=== PATIENT | male | born 1960 | race Caucasian/White ===

== ENCOUNTER 2021-12-30 13:53 | Observation (INO) ==
[2021-12-30 16:24] LABS: Basophils # 0.1 10*3/uL (0.0-0.2); Eosinophils # 0.3 10*3/uL (0.0-0.87); Eosinophils % 2.6 % (0.00-10.9); Hematocrit 44.7 VOL% (42.0-52.0); Hemoglobin 15.1 GM/DL (14.0-18.0); Immature Granulocytes % 0.4 %; Immature Granulocytes Absolute 0.05 #; Lymphocytes # 3.5 10*3/uL (1.4-4.0); Lymphocytes % 27.5 % (21.2-54.2); Mean Corpuscular HGB Conc 33.8 GM/DL (32-36); Mean Corpuscular Volume 91.6 FL (87-102); Mean Platelet Volume 10.2 FL (9.6-12.0); Monocytes # 1.4 10*3/uL (0.11-0.8); Neutrophils % 57.5 % (38.7-73.9); Platelet Count 228 T/CUMM (130-400); Red Blood Count 4.88 MC/CUMM (3.8-5.5); White Blood Count 12.6 T/CUMM (4-12)
[2021-12-30 16:25] LABS: Arterial Base Excess iSTAT 3 MMOL/L (-2.5-2.5); Arterial Bicarbonate iSTAT 27.9 MMOL/L (20-26); Arterial O2 Saturation iSTAT 98 % (95-100); Arterial PCO2 iSTAT 41 MM HG (35-48); Arterial PO2 iSTAT 94 MM HG (80-95); Arterial Total CO2 iSTAT 29 MMO/L (23-27); Arterial pH iSTAT 7.441 (7.35-7.45)
[2021-12-30 16:36] LABS: Alanine Aminotransferase 27 U/L (16-61); Albumin 4.1 G/DL (3.4-5.0); Alkaline Phosphatase 152 U/L (45-117); Aspartate Amino Transferase 32 U/L (0-37); Bilirubin,Total < 0.39 MG/DL (0.20-1.00); Blood Urea Nitrogen 16 MG/DL (7-18); Calcium 10.2 MG/DL (8.5-10.1); Carbon Dioxide 27 MMOL/L (21-32); Chloride 100 MMOL/L (98-107); Glucose 104 MG/DL (74-106); Osmolality,Calculated 273.8 MOS/KG (273-304); Potassium 3.3 MMOL/L (3.5-5.1); Sodium 137 MMOL/L (136-145); Total Protein 7.6 G/DL (6.4-8.2)
[2021-12-30 17:02] LABS: PT Patient Result 10.7 SECS (10.1-12.1)
[2021-12-30 17:09] LABS: Bacteria,Urine Occasional /HPF (Few); Glucose,Urine (UA) Negative (Negative); Ketones,Urine Negative (Negative); Nitrite,Urine Negative (Negative); Protein,Urine 30 mg/dL (Negative); RBC,Urine 2 /HPF (0-4); Urine Appearance Clear (Clear); Urine Color Yellow (Yellow); Urine pH 5.5 (4.5-8.0)
[2021-12-30 17:10] LABS: Bilirubin,Urine Negative (Negative); Blood, Urine Moderate mg/dL (Negative); Urine Urobilinogen 0.2 eU/dL (<2.0)
[2021-12-30 17:38] LABS: Barbiturates Screen,Urine Negative (Negative); Benzodiazepines Screen,Urine Negative (Negative); Cannabinoid Screen,Urine Negative (Negative); Opiate Screen,Urine Negative (Negative); Phencyclidine Screen,Urine Negative (Negative)
[2021-12-30] MEDS ORDERED: ASPIRIN 325 MG TABLET PO STA (18:54)
[2021-12-30] MEDS ORDERED: SODIUM CHLORIDE 0.9% 1,000 ML IV STA (18:55)
[2021-12-30] MEDS ORDERED: ONDANSETRON 4 MG/2 ML VIAL IV PRN (19:56)
[2021-12-30] MEDS ORDERED: GLUCAGON 1 MG VIAL IM PRN (19:56)
[2021-12-30] MEDS ORDERED: DEXTROSE 10% 250 ML BAG IV PRN (20:01)
[2021-12-30] MEDS ORDERED: LORazepam 1 MG TABLET PO PRN (20:03)
[2021-12-30 20:32] LABS: Thyroid Stimulating Hormone 1.39 uIU/ml (0.358-3.74)
[2021-12-30 21:42] LABS: Folate 10.33 NG/ML (5.38-24.0); Hepatitis B Surface Ag Quant < 0.10 Index; Hepatitis B Surface Ag Result Non-Reactive (NonReactive); Hepatitis C Virus Ab Quant < 0.02 Index; Hepatitis C Virus Ab Result Non-Reactive (NonReactive); Vitamin B12 392 PG/ML (211-911)
[2021-12-30] MEDS: ENOXAPARIN 30 MG/0.3 ML SYRINGE SUBCUT SCH (22:03)
[2021-12-30] MEDS: LACTULOSE 20 GM/30 ML UDCUP PO SCH (22:04)
[2021-12-30] MEDS: NICOTINE 21 MG/24 HR PATCH TRANSDERM SCH (22:05)
[2021-12-30] MEDS: SODIUM CHLORIDE 0.9% 1,000 ML IV SCH (22:05)
[2021-12-30] MEDS: cefTRIAXone 1,000 MG in SODIUM CHLORIDE 0.9% 100 ML IV SCH (22:21)
[2021-12-30] MEDS: NORTRIPTYLINE 25 MG CAPSULE PO SCH (22:59)
[2021-12-31 02:38] LABS: Basophils # 0.1 10*3/uL (0.0-0.2); Basophils % 1.2 % (0.0-0.8); Eosinophils # 0.3 10*3/uL (0.0-0.87); Eosinophils % 3.1 % (0.00-10.9); Hematocrit 41.3 VOL% (42.0-52.0); Hemoglobin 13.9 GM/DL (14.0-18.0); Immature Granulocytes % 0.5 %; Immature Granulocytes Absolute 0.05 #; Lymphocytes # 2.6 10*3/uL (1.4-4.0); Lymphocytes % 26.8 % (21.2-54.2); Mean Corpuscular HGB Conc 33.7 GM/DL (32-36); Mean Platelet Volume 9.8 FL (9.6-12.0); Monocytes # 1.3 10*3/uL (0.11-0.8); Monocytes % 13.4 % (1.7-12.7); Platelet Count 197 T/CUMM (130-400); Red Blood Count 4.49 MC/CUMM (3.8-5.5); Red Cell Distribution Width 13.1 % (9.3-17.3); White Blood Count 9.9 T/CUMM (4-12)
[2021-12-31 02:55] LABS: Alanine Aminotransferase 22 U/L (16-61); Albumin 3.3 G/DL (3.4-5.0); Alkaline Phosphatase 129 U/L (45-117); Aspartate Amino Transferase 24 U/L (0-37); Bilirubin,Total < 0.39 MG/DL (0.20-1.00); Blood Urea Nitrogen 15 MG/DL (7-18); Calcium 9.7 MG/DL (8.5-10.1); Carbon Dioxide 27 MMOL/L (21-32); Chloride 105 MMOL/L (98-107); Cholesterol 101 MG/DL (50-200); Glucose 115 MG/DL (74-106); HDL Cholesterol 26 MG/DL (40-60); Osmolality,Calculated 280.4 MOS/KG (273-304); Potassium 2.6 MMOL/L (3.5-5.1); Risk Ratio 3.88; Sodium 140 MMOL/L (136-145); Total Protein 6.7 G/DL (6.4-8.2); Triglycerides 205 MG/DL (2-150)
[2021-12-31] MEDS: SODIUM CHLORIDE 0.9% 1,000 ML IV SCH ×3 (07:38→16:40)
[2021-12-31] MEDS: LACTULOSE 20 GM/30 ML UDCUP PO SCH (09:06)
[2021-12-31] MEDS: PANTOPRAZOLE 40 MG TABLET PO SCH (09:06)
[2021-12-31] MEDS: NICOTINE 21 MG/24 HR PATCH TRANSDERM SCH (09:06)
[2021-12-31] MEDS: MODAFINIL 100 MG PO SCH (09:08)
[2021-12-31] MEDS: POTASSIUM CHLORIDE RIDER 10 MEQ/100 ML PREMIX IV SCH (10:49)
[2021-12-31] MEDS ORDERED: POTASSIUM CHLORIDE 20 MEQ TABLET PO ONE (15:36)
[2021-12-31] MEDS ORDERED: LACTULOSE 20 GM/30 ML UDCUP PO PRN (16:33)
[2021-12-31] MEDS: NEOMYCIN/POLYMYXIN/BACITRACIN OINT 0.9 GM PACK TOP SCH (16:44)
[2021-12-31] MEDS: POTASSIUM CHLORIDE 20 MEQ TABLET PO PRN (18:11)
[2021-12-31] MEDS: cefTRIAXone 1,000 MG in SODIUM CHLORIDE 0.9% 100 ML IV SCH (21:19)
[2021-12-31] MEDS: ENOXAPARIN 30 MG/0.3 ML SYRINGE SUBCUT SCH (21:19)
[2021-12-31] MEDS: ASPIRIN 325 MG TABLET PO SCH (21:19)
[2021-12-31] MEDS: NORTRIPTYLINE 25 MG CAPSULE PO SCH (21:19)
[2022-01-01] MEDS: SODIUM CHLORIDE 0.9% 1,000 ML IV SCH ×2 (00:30→12:56)
[2022-01-01 05:43] LABS: Basophils # 0.1 10*3/uL (0.0-0.2); Basophils % 0.8 % (0.0-0.8); Eosinophils # 0.2 10*3/uL (0.0-0.87); Eosinophils % 2.3 % (0.00-10.9); Hematocrit 41.1 VOL% (42.0-52.0); Hemoglobin 14.2 GM/DL (14.0-18.0); Immature Granulocytes % 0.3 %; Immature Granulocytes Absolute 0.03 #; Lymphocytes % 22.1 % (21.2-54.2); Mean Corpuscular HGB Conc 34.5 GM/DL (32-36); Mean Corpuscular Volume 91.3 FL (87-102); Mean Platelet Volume 9.9 FL (9.6-12.0); Monocytes % 11.4 % (1.7-12.7); Neutrophils % 63.1 % (38.7-73.9); Platelet Count 182 T/CUMM (130-400); Red Cell Distribution Width 13.2 % (9.3-17.3); White Blood Count 8.9 T/CUMM (4-12)
[2022-01-01 05:59] LABS: Calcium 9.6 MG/DL (8.5-10.1); Potassium 2.8 MMOL/L (3.5-5.1)
[2022-01-01] MEDS: POTASSIUM CHLORIDE 20 MEQ TABLET PO PRN (06:09)
[2022-01-01] MEDS: NICOTINE 21 MG/24 HR PATCH TRANSDERM SCH (09:07)
[2022-01-01] MEDS: PANTOPRAZOLE 40 MG TABLET PO SCH (09:07)
[2022-01-01] MEDS: NEOMYCIN/POLYMYXIN/BACITRACIN OINT 0.9 GM PACK TOP SCH (09:08)
[2022-01-01] MEDS: MODAFINIL 100 MG PO SCH (09:08)
[2022-01-01] MEDS ORDERED: POTASSIUM CHLORIDE 20 MEQ TABLET PO ONE (09:51)
[2022-01-01 12:20] VITALS: BP 138/85
[2022-01-01] MEDS ORDERED: LOPERAMIDE 2 MG CAPSULE PO ONE (12:40)
[2022-01-01] MEDS: ASPIRIN 325 MG TABLET PO SCH (13:04)
== END 2022-01-01 13:30 | disposition home or self-care (01) ==
LOC: N.ED 13:53 → INTOOBSV 19:55 → N.5E 19:55
PROVIDERS: ADMIT Internal Medicine; ATTEND Internal Medicine